=== PATIENT | female | born 1985 | race Asian ===

== ENCOUNTER 2018-04-23 09:31 | Emergency (ER) | payer BC ==
[~2018-04-23] VITALS: Ht 165.1 cm; Wt 56.2 kg
[2018-04-23 09:45] VITALS: Ht 165.1 cm; Wt 56.2 kg
[2018-04-23 10:09] LABS: UA SPECIFIC GRAVITY 1.015 (1.005-1.035); microscopic required? YES; urine erythrocyte 2+ (NEGATIVE)
[2018-04-23 10:23] LABS: BASOPHIL % 1.1 % (0-2); PLATELET COUNT 328 x10^3mcL (130-400); RED CELL DISTRIBUTION WIDTH 13.1 % (11.5-14.5)
[2018-04-23 11:42] VITALS: BP 106/57
== END 2018-04-23 11:42 | disposition home or self-care (01) ==
LOC: ED 09:31
PROVIDERS: Emergency Medicine
DX: O20.0 Threatened abortion (principal); Z3A.01 Less than 8 weeks gestation of pregnancy
CPT/HCPCS: 36415

== ENCOUNTER 2018-05-14 02:30 | Emergency (ER) | payer BC ==
[~2018-05-14] VITALS: Ht 162.6 cm; Wt 55.3 kg
[2018-05-14 02:46] VITALS: Ht 162.6 cm; Wt 55.3 kg
[2018-05-14 03:40] LABS: BASOPHIL % 0.6 % (0-2); PLATELET COUNT 336 x10^3mcL (130-400); RED CELL DISTRIBUTION WIDTH 12.9 % (11.5-14.5)
[2018-05-14 06:16] VITALS: BP 111/59
== END 2018-05-14 06:10 | disposition home or self-care (01) ==
LOC: ED 02:30
PROVIDERS: Emergency Medicine
DX: O03.4 Incomplete spontaneous abortion without complication (principal); Z3A.01 Less than 8 weeks gestation of pregnancy
CPT/HCPCS: J1885